=== PATIENT | female | born 1970 ===

== ENCOUNTER → 2017-10-15 | Outpatient (CLI) | payer OTHER ==
--- NOTE | ~2017-10-15 | EKG ---
[address] [address] ELECTROCARDIOGRAM REPORT Name: GRACIELA CHOUDHARY Room #: [facility]#: [id number] Admission: 10/15/17 Attend Phys: Rafal Chávez MD Discharge: Date of : 70 Report #: [id number] THIS REPORT FOR: //name// [facility] Test Date: 2017-10-15 Test Time: 11:18:35 Pat Name: GRACIELA CHOUDHARY Department: Room: Gender: F [employer] Operator: Juan F SHAFER : 1970 Requested By: Rafal Chávez Order Number: [id number] MD: Tony Moreno Measurements Intervals [place] Rate: 80 P: 44 AK: 125 QRS: -47 QRSD: 78 T: 25 QT: 396 QTc: 457 Interpretive Statements Sinus rhythm No previous ECG available for comparison Electronically Signed On 10-16-2017 7:48:30 CDT by Tony Moreno [email or web address] <ELECTRONICALLY SIGNED> By: Tony Moreno MD 10/16/17 0748 [id number] [id number] Tony Moreno MD /SWAPNA
== END ==
LOC: CV 08:46 → CAT 08:46
DX: E07.9 Disorder of thyroid, unspecified (principal); E04.2 Nontoxic multinodular goiter; K21.9 Gastro-esophageal reflux disease without esophagitis; R49.0 Dysphonia; R22.1 Localized swelling, mass and lump, neck